=== PATIENT | male | born 1940 | race Caucasian/White ===

== ENCOUNTER 2018-11-10 08:25 | Observation (INO) | payer MEDICARE ==
--- NOTE | 2018-11-09 10:51 | HP ---
HISTORY OF PRESENT ILLNESS: Jasvir Eddy is a 78-year-old male patient referred by Dr. Chery Lopez for a right inguinal hernia and incisional hernia, supraumbilical and slightly above from laparoscopic cholecystectomy and robotic prostatectomy. On exam, he was felt to possibly have a left inguinal hernia. Plan is robotic mesh repair, supraumbilical incisional hernias, and right inguinal hernia and possible left. He understands risks and benefits, consents. ALLERGIES: NONE. TOBACCO: None. ALCOHOL: None. MEDICATIONS: Lisinopril occasionally. PAST MEDICAL HISTORY: Hypertension. The patient has never had a colonoscopy. PAST SURGICAL HISTORY: 1. Robotic prostatectomy. 2. Laparoscopic cholecystectomy in 1993. 3. Back fusions in 1970. 4. Subxiphoid incisional hernia repaired, upper abdomen and midline, in [place] in 2002. REVIEW OF SYSTEMS: Ten-point noncontributory. 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 VITAL SIGNS: Weight 209 pounds, height 70 inches, 30 BMI, blood pressure 170/98, pulse 62, and temperature 98.2 degrees. HEAD, EARS, EYES, NOSE AND THROAT: Unremarkable. LUNGS: Clear to auscultation. CARDIAC: Regular rate and rhythm without murmur or gallop. ABDOMEN: Soft and nontender. The patient has a scar in his subxiphoid area that is well healed. No evidence of a hernia. He has a transverse incision supraumbilical midline under which there is an incisional hernia. He has a supraumbilical incision probably from laparoscopic cholecystectomy and there is an incisional hernia to the left of midline at this level. On standing, he has a right inguinal hernia, the enlarging on Valsalva. His testicles are normal. Left groin exam reveals possible left inguinal hernia on standing Valsalva. EXTREMITIES: Unremarkable. ASSESSMENT AND PLAN: 1. Incisional hernias x2, supraumbilical. Plan: Robot mesh repair outpatient. 2. Right inguinal hernia. Plan: Robot mesh repair as outpatient. 3. Possible left inguinal hernia. Plan: Repair is appreciated laparoscopically/robotically. 4. Hypertension. Job ID: [id number]
[2018-11-10 09:10] LABS: #Eosinphils 0.2 thou/uL (0.0-0.7); #Lymphocytes 1.9 thou/uL (1.20-3.40); #Monocytes 0.4 thou/uL (0.11-0.59); #Neutrophils 3.9 thou/uL (1.40-6.50); %Basophils 0.3 % (0.0-1.0); %Eosinophils 2.5 % (0.0-10.0); %Lymphocytes 29.3 % (21.0-51.0); %Monocytes 6.9 % (0.0-10.0); Hemoglobin 15.3 g/dL (14.0-18.0); Mean Corpuscular HGB CONC 35.8 g/dL (32.0-36.0); Mean Corpuscular Hemoglobin 33.8 pg (27.0-31.0); Mean Corpuscular Volume 94.5 fL (78.0-98.0); Mean Platelet Volume 7.6 fL (7.4-10.4); Platelet Count 149 thou/uL (130-400); RBC Distribution Width 12.4 % (11.5-14.5); Red Blood Cell (RBC) Count 4.53 mill/uL (4.70-6.10); White Blood Cell (WBC) Count 6.3 thou/uL (4.8-10.8)
[2018-11-10 09:30] LABS: Anion Gap 10 mmol/L (10-20); BUN (Urea Nitrogen) 13 mg/dL (8.4-25.7); Calc. Creatinine Clearance 93 mL/min (70-130); Calcium 9.3 mg/dL (7.8-10.44); Carbon Dioxide 28 mmol/L (23-31); Chloride 103 mmol/L (98-107); Estimated GFR-MDRD 85; Glucose 96 mg/dL (83-110); Potassium 4.2 mmol/L (3.5-5.1); Sodium 137 mmol/L (136-145)
[2018-11-10] MEDS ORDERED: Ketorolac Tromethamine 30 MG/ML VIAL ONE (09:40)
[2018-11-10] MEDS ORDERED: Fentanyl 250 MCG/5 ML VIAL ONE (10:32)
[2018-11-10] MEDS ORDERED: Bupivacaine/Epinephrine 0.25% 30 ML VIAL ONE ×2 (10:37→12:23)
[2018-11-10] MEDS ORDERED: Fentanyl 100 MCG/2 ML VIAL ONE (14:41)
[2018-11-10] MEDS ORDERED: Morphine 4 MG/ML VIAL ONE (15:31)
[2018-11-10] MEDS ORDERED: Promethazine HCl 25 MG/ML VIAL ONE (15:40)
[2018-11-10] MEDS ORDERED: HYDROcodone/Acetaminophen 5/325 mg Tablet ONE ×2 (16:57→17:39)
[2018-11-10] MEDS ORDERED: Ondansetron ODT 4 MG TAB PO PRN (18:42)
[2018-11-10] MEDS ORDERED: hydrALAZINE 20 MG/ML VIAL SLOW IVP PRN (18:42)
[2018-11-10] MEDS ORDERED: HYDROcodone/Acetaminophen 10/325 mg Tablet PO PRN (18:42)
[2018-11-10] MEDS ORDERED: Morphine 4 MG/ML VIAL SLOW IVP PRN (18:42)
[2018-11-10] MEDS ORDERED: Morphine 2 MG/ML SYRINGE SLOW IVP PRN (18:42)
[2018-11-10] MEDS ORDERED: traMADol HCl 50 MG TAB PO PRN (18:46)
[2018-11-10] MEDS ORDERED: Acetaminophen 500 MG TAB PO PRN (18:46)
[2018-11-10] MEDS ORDERED: Ketorolac Tromethamine 30 MG/ML VIAL IVP PRN (18:46)
[2018-11-10 19:05] LABS: #Lymphocytes 0.6 thou/uL (1.20-3.40); %Basophils 0.1 % (0.0-1.0); %Eosinophils 0.1 % (0.0-10.0); %Lymphocytes 4.1 % (21.0-51.0); %Monocytes 7.6 % (0.0-10.0); %Neutrophils 88.2 % (42.0-75.0); Hemoglobin 13.8 g/dL (14.0-18.0); Mean Corpuscular HGB CONC 35.8 g/dL (32.0-36.0); Mean Corpuscular Hemoglobin 34.3 pg (27.0-31.0); Mean Corpuscular Volume 95.7 fL (78.0-98.0); Mean Platelet Volume 7.6 fL (7.4-10.4); Platelet Count 149 thou/uL (130-400); RBC Distribution Width 12.5 % (11.5-14.5); Red Blood Cell (RBC) Count 4.03 mill/uL (4.70-6.10); White Blood Cell (WBC) Count 13.7 thou/uL (4.8-10.8)
--- NOTE | 2018-11-10 19:15 | OP ---
DATE OF PROCEDURE: 11/10/2018 PREOPERATIVE DIAGNOSES: Bilateral inguinal hernias, umbilical hernia, incisional hernia (trocar site from prostatectomy). PROCEDURE PERFORMED: Robot laparoscopic mesh repair of right inguinal hernia, robot laparoscopic mesh repair of left inguinal hernia, 3DMax Bard laparoscopic mesh repair of umbilical hernia and incisional hernia. Umbilical hernia 3 cm in diameter, incisional hernia 3 cm in diameter. Ventralight 8 cm mesh used. ANESTHESIA: General, local 0.5% Marcaine with epinephrine 30 mL, 0.25% Marcaine with epinephrine 30 mL. DESCRIPTION OF PROCEDURE: The patient was taken to the operating room where under general anesthesia, Colón catheter was placed at the beginning and removed at the end. Abdomen was clipped of hair, prepared with ChloraPrep, and draped in routine fashion. Local anesthetic was infiltrated in the skin and subcutaneous tissue about the operative site. Supraumbilical incision was made between the umbilicus and xiphoid, and pneumoperitoneum to 15 mmHg obtained with a Veress needle, replaced with an 11 mm balloon port, and video laparoscope inserted. An 8 mm ports were placed left and right mid lateral abdomen. There was omentum incarcerated in the umbilical incisional hernias, taken down robotically, after the robot was docked. Once these were reduced, attention was turned to the right and left inguinal hernias. There was a large right inguinal hernia and large left inguinal hernia with a portion of sigmoid in it on the left. Cecum and terminal ileum were in the right inguinal hernia. These were reduced till the patient was in slight Trendelenburg. On the right and left sides separately and individually, peritoneal flap was created from the anterior superior iliac spine to the midline first on the right than the left and flap dissected free, identifying Tommy ligament initially on the right and then the left. Cord structure was dissected free on the right and the left, freeing the hernia sac. Laterally, dissection was carried down into the retroperitoneum. Dissection was carried out retroperitoneal enough to allow mesh coverage of the cord structures for least 6 to 7 cm. A 3D Bard Max mesh right placed and then left placed, and then, the mesh secured to the Tommy's ligament on the right and then the left with interrupted sutures of 2-0 Vicryl. The mesh was secured to the anterior abdominal wall lateral to the epigastric vessels with interrupted sutures of 2-0 Vicryl. A 3-0 Stratafix suture was used to close the peritoneal defect on each side. There was good coverage. Good hernia repair was undertaken. There was an umbilical hernia and slightly above this incisional hernia. Pneumoperitoneum reduced to 10 mmHg, and hernia sacs had been cleared and the fascia approximated with continuous suture of #0 V-Loc suture. Once this was completed, a 9 cm diameter Ventralight mesh fashion placed into the abdominal cavity through the port sites and secured using the robot circumferentially with continuous suture of 2-0 Stratafix suture. Once this was completed, good hernia repairs appreciated. All needles removed. All instrument counts reduced. Pneumoperitoneum reduced. The left paramedian supraumbilical fascia was approximated with 0 Vicryl UR needle. All skin incisions were closed with interrupted subdermal 4-0 Monocryl and [place] glue applied. The patient tolerated the procedure well. Job ID: [id number]
[2018-11-10] MEDS: Famotidine 20 MG TAB PO SCH (21:00)
[2018-11-10 22:55] VITALS: BMI 32.5
[2018-11-10] MEDS: D5 1/2 NS w/20 mEq KCL 1,000 ML IV SCH (23:42)
[2018-11-10] MEDS: HYDROcodone/Acetaminophen 10/325 mg Tablet PO PRN (23:50)
[2018-11-11] MEDS: Ondansetron PF 4 MG/2 ML Vial IVP PRN ×2 (05:59→11:15)
[2018-11-11] MEDS: HYDROcodone/Acetaminophen 10/325 mg Tablet PO PRN ×2 (06:00→12:07)
[2018-11-11] MEDS: D5 1/2 NS w/20 mEq KCL 1,000 ML IV SCH ×2 (06:05→10:15)
[2018-11-11 06:22] LABS: #Lymphocytes 1.4 thou/uL (1.20-3.40); #Neutrophils 13.1 thou/uL (1.40-6.50); %Eosinophils 0.1 % (0.0-10.0); %Lymphocytes 8.8 % (21.0-51.0); %Monocytes 6.5 % (0.0-10.0); %Neutrophils 84.5 % (42.0-75.0); Hemoglobin 12.2 g/dL (14.0-18.0); Mean Corpuscular Hemoglobin 33.8 pg (27.0-31.0); Mean Corpuscular Volume 96.6 fL (78.0-98.0); Mean Platelet Volume 8.2 fL (7.4-10.4); Platelet Count 222 thou/uL (130-400); RBC Distribution Width 12.5 % (11.5-14.5); Red Blood Cell (RBC) Count 3.61 mill/uL (4.70-6.10); White Blood Cell (WBC) Count 15.5 thou/uL (4.8-10.8)
[2018-11-11 06:43] LABS: Anion Gap 17 mmol/L (10-20); BUN (Urea Nitrogen) 23 mg/dL (8.4-25.7); Calc. Creatinine Clearance 72 mL/min (70-130); Calcium 8.6 mg/dL (7.8-10.44); Carbon Dioxide 21 mmol/L (23-31); Chloride 101 mmol/L (98-107); Estimated GFR-MDRD 55; Glucose 213 mg/dL (83-110); Potassium 4.4 mmol/L (3.5-5.1); Sodium 135 mmol/L (136-145)
[2018-11-11] MEDS: Polyethylene Glycol 3350 17 GM Packet PO SCH (08:15)
[2018-11-11] MEDS: Famotidine 20 MG TAB PO SCH ×2 (08:15→20:13)
[2018-11-11] MEDS: Enoxaparin Sodium 40 MG/0.4 ML SYRINGE SC SCH (08:16)
--- NOTE | 2018-11-11 14:51 | PRG ---
DATE OF SERVICE: 11/11/2018 SUBJECTIVE: Mr. Eddy was kept last night due to pain. He is complaining of pain mostly in his mid abdomen. Post surgery, his bladder was filled with 180 mL of saline. He could not void last night. This morning, he was straight cathed in and out 600 mL. He is 380 mL residual, 5 hours later unable to void still. The patient had a prostatectomy 5 to 6 years ago. His urologist is in [place] and he has not followed with him since the surgery. The patient does complain some scrotal swelling, but he did have bilateral large inguinal hernias into the scrotum and this is expected. Scrotal support has not been provided today. The patient is tolerating his diet and drinking liquids. This morning, he states his pain feels better. He is tolerating diet. He has not had nausea or vomiting. OBJECTIVE: VITAL SIGNS: Temperature 97.6, pulse 73, respiratory rate 20, and blood pressure 109/70. LUNGS: Clear to auscultation. No wheezing. CARDIAC: Regular rate and rhythm. ABDOMEN: Soft plus bowel sounds. No guarding. Laparoscopic wounds look good. Some scrotal swelling, but it is soft and compressible. LABORATORY DATA: This morning, his white count is 15, hemoglobin 12. Differential unremarkable. Basic metabolic profile is normal. Glucose 213, carbon dioxide 21, and sodium 135. ASSESSMENT AND PLAN: Urinary retention. He may need to go home with a Colón catheter. We will assess him this morning and place a Colón catheter and obtain a urinalysis and culture if we have to cath him again. If we have to put another catheter, we will leave it in place. We will consult local urologist for management. Anticipate discharge home possibly tomorrow. We will get him today to convalesce and assure that his pain is in order and his urinary care is in order. Job ID: [id number]
[2018-11-11] MEDS ORDERED: Glycopyrrolate 0.2 MG/ML 5 ML SYRINGE ONE (16:10)
[2018-11-11] MEDS ORDERED: Ondansetron PF 4 MG/2 ML Vial ONE (16:10)
[2018-11-11] MEDS ORDERED: Succinylcholine Chloride 20 MG/ML 10 ml SYRINGE FS ONE (16:10)
[2018-11-11] MEDS ORDERED: Lidocaine 1% PF 5 ML VIAL ONE (16:10)
[2018-11-11] MEDS ORDERED: Dexamethasone 20 MG/5 ML VIAL ONE (16:10)
[2018-11-11] MEDS ORDERED: PROPOFOL 200 MG/20 ML VIAL ONE (16:10)
[2018-11-11] MEDS ORDERED: Vecuronium 10 MG VIAL ONE (16:10)
[2018-11-11] MEDS: Tamsulosin HCl 0.4 MG CAP PO SCH (20:13)
--- NOTE | 2018-11-11 22:44 | ULT ---
ULTRASOUND SCROTUM AND TESTICLES DOPPLER DUPLEX: DATE: 11/11/2018 HISTORY: Acute scrotal pain and edema in 78-year-old male, status post hernia repair TECHNIQUE: Grayscale evaluation of intrascrotal contents. Color flow Doppler and spectral waveform analysis of t he testicles. FINDINGS: Blood flow demonstrated in both testicles by Doppler. Bilateral testicles have homogeneous echogenicity with no evidence of solid mass. Small to moderate-sized bilateral hydroceles. Diffuse soft tissue thickening of roth of the scrotum. Bilateral epididymal heads are mildly symmetrically enlarged. IMPRESSION: 1. Diffuse scrotal wall edema. 2. Small to moderate-sized bilateral hydroceles. 3. No evidence of testicular torsion.
[2018-11-12] MEDS: D5 1/2 NS w/20 mEq KCL 1,000 ML IV SCH (00:49)
[2018-11-12] MEDS: HYDROcodone/Acetaminophen 10/325 mg Tablet PO PRN (00:50)
--- NOTE | 2018-11-12 01:53 | CON ---
DATE OF CONSULTATION: 11/11/2018 REASON FOR CONSULTATION: 1. Urinary retention. 2. History of prostate cancer, status post prostatectomy. HISTORY OF PRESENT ILLNESS: Mr. 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 Henrique Greco on 11/10/2018. Postoperatively, the patient's scrotum is noted to be swollen and the testes are tender bilaterally. In addition, the patient is having difficulty emptying his bladder. In review of the patient's past history, he does self report that he has had some slowing of his urinary stream since his operation, which was several years ago. The patient reports that he has had some hesitancy sensation, incomplete bladder emptying, and relatively slow urinary stream at home. He also reports that he is not able to void well unless seated on a toilet. Mr. Eddy is having a scrotal pain complaints which are directly related to his operation by his report. He reports relatively normal scrotum prior to admission to the hospital and now scrotum is bloated up and tender. ALLERGIES: NO KNOWN DRUG ALLERGIES. SOCIAL HISTORY: No tobacco or alcohol use at home. HOME MEDICATION LIST: Lisinopril. PAST MEDICAL HISTORY: Includes, 1. Hypertension. 2. Prostate cancer, status post prostatectomy. PAST SURGICAL HISTORY: 1. Robotic laparoscopic prostatectomy. 2. Laparoscopic cholecystectomy in 1993. 3. Back fusions in 1970. 4. Subxiphoid incisional hernia repair, upper abdomen in midline in [place] in 2002. REVIEW OF SYSTEMS: GENERAL: This is a pleasant white male, in no apparent distress. HEAD, EYES, EARS, NOSE, AND THROAT: Extraocular movements are intact. The patient is not having any major head complaints. LUNGS: Clear to auscultation bilaterally. The patient is doing well from a cardiac and pulmonary standpoint. GASTROINTESTINAL: No complaints. : The patient self reports a slowing of his urinary stream, which has become troublesome. PHYSICAL EXAMINATION: GENERAL: This is a white male who appears his stated age. 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 VITAL SIGNS: As per chart. HEAD, EYES, EARS, NOSE, AND THROAT: Extraocular movements are intact. Sclerae are anicteric. Oropharynx is clear. NECK: Supple. LUNGS: Clear to auscultation bilaterally. CARDIAC: Regular rate and rhythm without murmur, rub, or gallop. ABDOMEN: Soft and nontender. There are multiple fresh scars bilaterally which are consistent with his recent laparoscopic hernia repair. GENITOURINARY: Phallus is without lesion. Testes are present bilaterally in the scrotum. They are bilaterally tender. There is swelling and/or edema of the scrotum bilaterally. Digital rectal examination is performed and it finds an empty vault with no evidence of palpable prostate tissue. LABORATORY STUDIES: The patient's white cell count has been progressively increasing at 15,500 present, hematocrit is 34.9, mean corpuscular volume is within normal limits. Serum chemistry showed the patient's sodium at 135, potassium of 4.4, chloride 101. Serum carbon dioxide level at 21. There is an anion gap of 17 with a creatinine of 1.27, rising from 0.87 yesterday. Estimated glomerular filtration rate has fallen accordingly. ASSESSMENT: 1. Slow urinary stream, complaints are likely related to patient's surgery of a radical prostatectomy. Based on his oral report, he has had slowing of his stream prior to admission in the hospital. This was subsequent to his radical prostatectomy operation. The patient is not going to benefit from prostate specific agents such as tamsulosin and finasteride instead he may require self-intermittent catheterization, cystoscopic assessment, and urodynamic assessment to assess for his level of obstruction. 2. The patient probably would benefit from continued self intermittent catheterization at home, may need to undergo cystoscopic evaluation and possible DVIU procedure. Job ID: [id number]
[2018-11-12 04:52] LABS: #Lymphocytes 1.3 thou/uL (1.20-3.40); #Monocytes 0.6 thou/uL (0.11-0.59); %Basophils 0.1 % (0.0-1.0); %Eosinophils 0.3 % (0.0-10.0); %Lymphocytes 14.6 % (21.0-51.0); %Monocytes 6.5 % (0.0-10.0); %Neutrophils 78.5 % (42.0-75.0); Hemoglobin 9.3 g/dL (14.0-18.0); Mean Corpuscular HGB CONC 35.7 g/dL (32.0-36.0); Mean Corpuscular Hemoglobin 34.2 pg (27.0-31.0); Mean Corpuscular Volume 95.9 fL (78.0-98.0); Mean Platelet Volume 7.9 fL (7.4-10.4); Platelet Count 139 thou/uL (130-400); RBC Distribution Width 12.7 % (11.5-14.5); Red Blood Cell (RBC) Count 2.71 mill/uL (4.70-6.10); White Blood Cell (WBC) Count 8.9 thou/uL (4.8-10.8)
[2018-11-12 05:07] LABS: ALT (SGPT) 9 U/L (8-55); AST (SGOT) 12 U/L (5-34); Albumin 3.4 g/dL (3.4-4.8); Alkaline Phosphatase 49 U/L (40-150); Anion Gap 11 mmol/L (10-20); BUN (Urea Nitrogen) 25 mg/dL (8.4-25.7); Bilirubin, Total 1.5 mg/dL (0.2-1.2); Calc. Creatinine Clearance 77 mL/min (70-130); Calcium 8.2 mg/dL (7.8-10.44); Carbon Dioxide 26 mmol/L (23-31); Chloride 101 mmol/L (98-107); Estimated GFR-MDRD 59; Glucose 120 mg/dL (83-110); Potassium 4.3 mmol/L (3.5-5.1); Protein, Total 5.4 g/dL (5.8-8.1); Sodium 134 mmol/L (136-145)
[2018-11-12] MEDS: Famotidine 20 MG TAB PO SCH (09:00)
[2018-11-12] MEDS: Tamsulosin HCl 0.4 MG CAP PO SCH (09:00)
[2018-11-12] MEDS: Polyethylene Glycol 3350 17 GM Packet PO SCH (09:00)
[2018-11-12] MEDS: Enoxaparin Sodium 40 MG/0.4 ML SYRINGE SC SCH (09:00)
[2018-11-12 11:34] VITALS: BP 118/72; TEMP 97.7
[2018-11-12] MEDS ORDERED: Bisacodyl 10 MG SUPP PR PRN (16:00)
--- NOTE | 2018-11-12 22:25 | PRG ---
DATE OF SERVICE: 11/12/2018 REASON FOR CONSULTATION: Initial reason for consultation; 1. Urinary retention. 2. History of prostate cancer status post prostatectomy. 3. Scrotal swelling. HISTORY OF PRESENT ILLNESS: Mr. 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 Henrique Greco on 11/10/2018. Postoperatively, the patient had significant swelling to his scrotum and in addition had urinary retention issues. The patient does have a past history significant for prostate cancer and underwent a radical prostatectomy for that. The patient did note slowing of his urinary stream and obstructive voiding symptoms prior to presentation in the hospital. He and I discussed the relative merits of indwelling catheter management versus intermittent catheterization as management plan. Based on the patient's history, I think he would be well managed with intermittent catheterization at home, but this would need to be done 5 times per day. INTERVAL EVENTS: The patient did undergo ultrasound of his scrotum to evaluate scrotal contents. Scrotal wall is edematous. Testes have preserved blood flow on the left and right sides. There is no evidence of tumor mass or circulatory issues other than generalized anasarca and edema of the scrotal wall. LABORATORY DATA: White count is 8900 today, hemoglobin is 9.3 with a hematocrit of 26, which is about half of what it was at admission, is probably secondary largely to delusional factors and probably does contribute to the patient's scrotal edema. Serum chemistries show the patient's blood urea nitrogen at 25, creatinine at 1.19, indicating probable degree of minor ATN since admission. ASSESSMENT AND PLAN: 1. Obstructive voiding history. The patient can be managed with either indwelling Colón catheter or intermittent catheterization. He may follow up with in my office for further evaluation and assessment. A voiding trial can be performed in that setting. Prostate specific medications are not going to work well in this patient due to the fact that he has had a radical prostatectomy already and more likely than not he has either urethral stricture disease or a bladder neck contracture, which I think would be the more likely diagnosis. 2. History of prostate cancer. The patient's current PSA returns at 0.05, which may or may not indicate a recurrence. A track record of PSA values is important. I doubt the degree of obstruction that is observed in this patient would be accounted for by such a low PSA value. 3. Constipation management. The patient will benefit from Dulcolax suppository and MiraLAX daily. Over 35 minutes of consultation assessment time as well as coordination of care time was spent in evaluation and assessment of this patient today. Job ID: [id number]
--- NOTE | 2018-11-13 02:16 | DIS ---
DATE OF ADMISSION: 11/10/2018 DATE OF DISCHARGE: 11/12/2018 DISCHARGE DIAGNOSES: 1. Bilateral inguinal hernias, umbilical hernia, incisional hernia. Robot trocar site from the robot prostatectomy 6-7 years ago in [place]. 2. Urinary retention. DISCHARGE MEDICATIONS: 1. Tylenol ibuprofen [id number] p.r.n. pain. 2. Ultram for refractory pain. 3. MiraLAX daily. 4. Lisinopril 5 mg a day. CONSULTATIONS: Dr. Jose Luis Low, Urology. The patient is in and out cathed himself. He had some voiding problems prior to this hospitalization, postoperative urinary retention, he was in and out cathed several times and by the time of this dictation, he is able to void with 100 to 300 urine residual. The patient will be follow up with Dr. Low next week regarding this. He is given in-and-out cath supplies and instructions for p.r.n. HISTORY: A 78-year-old male with right inguinal hernia, suspect left inguinal hernia and incisional hernia and umbilical hernia. The incisional hernia is just a few centimeters above the umbilicus from an old trocar site from robot prostatectomy. The patient is admitted on the day of surgery and postoperatively had too much pain to be discharged home. He also had problems voiding. The above routine was followed. Dr. Low saw him. He was discharged home with normal laboratories. His hemoglobin did drop from 15 preoperatively to 9, but he remained hemodynamically stable. He did have scrotal swelling as expected. When Dr. Low saw him, he had a scrotal ultrasound revealing soft tissue edema, but normal testicles. The patient will follow up in my office in 2 to 3 weeks. Follow up with Dr. Low next week. Job ID: [id number]
== END 2018-11-12 16:11 | disposition home or self-care (01) ==
LOC: SDC 08:25 → SURG A 18:40
PROVIDERS: ADMIT Specialist; ATTEND Specialist
PROC: 0YUA4JZ Supplement Bilateral Inguinal Region with Synthetic Substitute, Percutaneous Endoscopic Approach (ICD-10-PCS; principal; 2018-11-10)
PROC: 0WUF4JZ Supplement Abdominal Wall with Synthetic Substitute, Percutaneous Endoscopic Approach (ICD-10-PCS; 2018-11-10)
PROC: 0WUF4JZ Supplement Abdominal Wall with Synthetic Substitute, Percutaneous Endoscopic Approach (ICD-10-PCS; 2018-11-10)
PROC: 0WUF4JZ Supplement Abdominal Wall with Synthetic Substitute, Percutaneous Endoscopic Approach (ICD-10-PCS; 2018-11-10)
DX: K40.20 Bilateral inguinal hernia, without obstruction or gangrene, not specified as recurrent (principal); K43.2 Incisional hernia without obstruction or gangrene; K42.9 Umbilical hernia without obstruction or gangrene; I10 Essential (primary) hypertension; R33.9 Retention of urine, unspecified; Z88.8 Allergy status to other drugs, medicaments and biological substances
CPT/HCPCS: 49650; 49652; 49656; 51701; 76870; 80048 ×2; 80053; 84153; 85025 ×4; 93005; 93976; 96372 ×2; 96374; 96375; 96376; 97139 ×2; G0378 ×3; 36415; 51798; 93010; C1781; J0131; J0690; J1100; J1650; J1885; J2001; J2270; J2405; J2550; J2704; J3010